=== PATIENT | female | born 1980 | race Native Hawaiian/Other Pacific Islander ===

== ENCOUNTER 2016-10-30 10:18 | Inpatient (IN) | payer OTHER ==
[2016-10-30] MEDS ORDERED: EMLA TP PRN (11:56)
[2016-10-30] MEDS ORDERED: PITOCin/NS 20 UNIT/1000ML DRIP 20 UNITS/1,000 ML BAG IV SCH ×2 (12:00→17:36)
[2016-10-30] MEDS ORDERED: LACTATED RINGERS 1,500 ML IV NR (12:00)
[2016-10-30] MEDS ORDERED: LACTATED RINGERS 1,000 ML IV SCH (12:00)
[2016-10-30] MEDS ORDERED: ANCEF/STERILE WATER 2 GM/20 ML 2 GM/20 ML SYRINGE IV NR (12:00)
[2016-10-30 12:45] LABS: Basophils % (Auto) 0.2 % (0.0-1.8); Eosinophils % (Auto) 0.2 % (0.0-4.3); Hematocrit 39.1 % (30.3-42.9); Mean Corpuscular HGB Conc 33 % (30-34); Mean Corpuscular Hemoglobin 30 pg (28-32); Mean Corpuscular Volume 91 fl (79-97); Platelet Count 244 K/mm3 (140-440); Red Cell Distribution Width 14.3 % (13.2-15.2)
[2016-10-30] MEDS ORDERED: BICITRA PO ONE (13:00)
--- NOTE | 2016-10-30 13:15 | History and Physical Report ---
History of Present Illness Date of examination: 10/30/16 Date of admission: 10/30/16 13:09 Chief complaint: patient presents with c/o of uterine contractions. Previous c/s x 4. care with [facility] Past History Past Medical History: no pertinent history Past Surgical History: section (x4) - Obstetrical History Expected Date of Delivery: 11/10/16 Actual Gestation: 38 Week(s) 3 Day(s) : 5 Number of Living Children: 4 Medications and Allergies Allergies Allergy/AdvReac Type Severity Reaction Status Date / Time No Known Allergies Allergy Unverified 10/30/16 11:06 Active Meds: Active Medications Famotidine (Pepcid) 20 mg IV ONCE ONE Stop: 10/30/16 14:01 Lactated Ringer's (Lactated Ringers) 1,500 mls @ 2,250 mls/hr IV PREOP NR Stop: 10/30/16 23:00 Cefazolin Sodium (Ancef/Sterile Water 2 Gm/20 Ml) 2 gm in 20 mls @ 80 mls/hr IV PREOP NR PRN Reason: Protocol Stop: 10/30/16 23:00 Lactated Ringer's (Lactated Ringers) 1,000 mls @ 2,250 mls/hr IV PREOP ANGELICA Stop: 10/31/16 12:27 Oxytocin/Sodium Chloride (Pitocin/Ns 20 Unit/1000ml Drip) 20 units in 1,000 mls @ 0 mls/hr IV TITR ANGELICA PRN Reason: As Directed Lidocaine/Prilocaine (Emla) 1 applic TP ONCE PRN PRN Reason: for martinez catheter insertion Metoclopramide HCl (Reglan) 10 mg IV ONCE ONE Stop: 10/30/16 14:01 Review of Systems All systems: negative Gastrointestinal: abdominal pain - Vital Signs Vital signs: Vital Signs Pulse BP Pulse Ox 83 99/68 97 10/30/16 10:39 10/30/16 10:39 10/30/16 10:39 Temp Pulse Resp BP Pulse Ox 63 99/68 97 10/30/16 12:53 10/30/16 10:39 10/30/16 12:53 - Physical Exam Breasts: Positive: deferred Cardiovascular: Regular rate, Normal S1, Normal S2 Abdomen: Positive: normal appearance, soft, normal bowel sounds. Negative: distention, tenderness Vulva: both: normal Vagina: Positive: normal moisture. Negative: discharge Cervix: Negative: lesion, discharge Uterus: Positive: normal size, normal contour Adnexa: both: normal Anus/Rectum: Positive: normal perianal skin, heme negative. Negative: rectal mass, hemorrhoids Extremities: Deep Tendon Reflex Grade: Normal +2 - Obstetrical FHR: category 2 Uterine Contraction Monitor Mode: External Cervical Dilatation: 2 Uterine Contraction Pattern: Regular Uterine Contraction Intensity: Moderate Results Result Diagrams: 10/30/16 10:50 Abnormal lab results 10/30/16 Range/Units 10:50 Seg Neutrophils % 78.4 H (40.0-70.0) % Seg Neutrophils # 7.8 H (1.8-7.7) K/mm3 All other labs normal. Assessment and Plan iup at 38 weeks, previous c/s x 4 Prepare for c/s
--- NOTE | 2016-10-30 13:52 | Anesthesia Consultation ---
Anesthesia Consult and Med Hx Date of service: 10/30/16 - Airway Anesthetic Teeth Evaluation: Good ROM Head & Neck: Adequate Mental/Hyoid Distance: Adequate Mallampati Class: Class II Intubation Access Assessment: Probably Good - Pre-Operative Health Status ASA Pre-Surgery Classification: ASA2 Proposed Anesthetic Plan: Epidural, Spinal - Pulmonary Hx Asthma: No COPD: No Hx Pneumonia: No - Cardiovascular System Hx Hypertension: No - Central Nervous System Hx Seizures: No Hx Psychiatric Problems: No - Endocrine Hx Renal Disease: No Hx End Stage Renal Disease: No Hx Hypothyroidism: No Hx Hyperthyroidism: No - Hematic Hx Anemia: No Hx Sickle Cell Disease: No - Other Systems Hx Alcohol Use: No - Additional Comments Anesthesia Medical History Comments: h/o repeat x 4
[2016-10-30] MEDS ORDERED: ZOFRAN IV PRN ×2 (13:53→17:36)
[2016-10-30] MEDS ORDERED: NARCAN 0.4 MG/1 ML IV PRN ×2 (13:53→17:36)
--- NOTE | 2016-10-30 13:53 | Anesthesia Day of Surgery ---
Anesthesia Day of Surgery - Day of Surgery Patient Examined: Yes Patient H&P Reviewed: Yes Patient is NPO: Yes
[2016-10-30] MEDS ORDERED: DILAUDID IV PRN (13:54)
[2016-10-30] MEDS ORDERED: BENADRYL IV PRN (13:54)
[2016-10-30] MEDS ORDERED: MORPHINE ONE (13:58)
[2016-10-30] MEDS ORDERED: PEPCID IV ONE (14:00)
[2016-10-30] MEDS ORDERED: REGLAN IV ONE (14:00)
[2016-10-30] MEDS ORDERED: SODIUM CHLORIDE FLUSH SYRINGE 10 ML IV SCH ×2 (14:00→17:36)
[2016-10-30] MEDS ORDERED: TORADOL IV PRN ×2 (14:10→18:53)
[2016-10-30] MEDS ORDERED: ePHEDrine SULFATE ONE (14:19)
[2016-10-30] MEDS ORDERED: WATER FOR IRRIG STERILE IR ONE (14:30)
[2016-10-30] MEDS ORDERED: NACL 0.9% IR ONE (14:30)
[2016-10-30] MEDS ORDERED: NACL 0.9% 1000 ML 1,000 ML ONE (14:33)
[2016-10-30] MEDS ORDERED: ZOFRAN ONE (14:56)
--- NOTE | 2016-10-30 15:32 | Procedure Note ---
OB Delivery Note - Delivery Date of Delivery: 10/30/16 Surgeon: SANDHYA JIMENEZ Estimated blood loss: other (600ml) - Section Preop diagnosis: repeat Postop diagnosis: same section procedure: section, repeat low transverse Disposition: PACU Complications: none - A at 1 minute: 9 at 5 minutes: 9 Gender: Male (wt 7lbs 7 oz. normal tubes and ovaries- no adhesions noted )
--- NOTE | 2016-10-30 15:36 | Operative Report ---
Operative Report Operative Report: Preoperative diagnoses- Intrauterine at 38 3/7 weeks, previous c/s x4 , active labor Postoperative diagnoses- same Procedure- Repeat low segment transverse section Surgeon- Dr. Miya Aguayo Anesthesia- Spinal/epidural Findings- live male infant wt 7-7, normal tubes and ovaries, no abdominal adhesion noted Estimated blood loss- 600ml Complications- none Instrument count- Correct Pathology specimens- Placenta- discarded Patient was taken to the OR. Spinal/epidural anesthesia was instituted. Patient was then placed in the dorsolithotomy position and Cedillo catheter was placed. Patient was then returned to the supine position and prepped and draped in usual sterile fashion. Level of anesthesia was checked and found to be adequate. A vertical skin incision was made. The incision was extended through the subcutaneous tissues to the fascia. Which was incised vertically using Mayos and pickups with teeth. The rectus muscle was then in the midline. The peritoneum was visualized, grasped with hemostats and opened using the Metzenbaum scissors. Upon entering the peritoneal cavity an fer retractor was placed appropriately. A curvilinear incision was made with Metzenbaum scissors and a smooth pickup. A bladder flap was developed, a curvilinear incision was made in the lower uterine segment using a scalpel. The uterine cavity was entered bluntly with the surgeon's finger and the incision was enlarged. The Head of the was delivered . The mouth and nose were suctioned and the remainder of the body was delivered . The cord was doubly clamped and cut . Infant was given to the waiting team. The cord blood was obtained. The placenta was then delivered manually. The uterus is cleaned with a moist wet lap tape. The first layer of the uterus is closed with 0 Vicryl running interlocking stitch. The second layer of the uterus was closed with a 0 Vicryl horizontal imbricating stitch. The pelvic gutters were cleaned . Next the adnexa were examined and found to be normal. Next the fascia was closed with 0 Vicryl running suture. Next the subcutaneous tissue was reapproximated with 3-0 Vicryl running suture. The skin was reapproximated with a 4-0 Vicryl subcuticular stitch. Mastisol and Steri-Strips were placed . A pressure dressing was applied. The patient was transferred to recovery room in stable condition.
[2016-10-30] MEDS ORDERED: MYLICON PO PRN (17:36)
[2016-10-30] MEDS ORDERED: MILK OF MAGNESIA PO PRN (17:36)
[2016-10-30] MEDS ORDERED: TUCKS PAD TP PRN (17:36)
[2016-10-30] MEDS ORDERED: LANSINOH TP PRN (17:36)
[2016-10-30] MEDS ORDERED: PERCOCET 5/325 PO PRN (17:36)
[2016-10-30] MEDS ORDERED: MORPHINE IV PRN (17:36)
[2016-10-30] MEDS ORDERED: D5LR 1,000 ML IV SCH (17:36)
[2016-10-30] MEDS ORDERED: ANCEF/NS 1 GM/50 ML 1 GM/50 ML BAG IV SCH (21:00)
[2016-10-31 01:35] LABS: Hematocrit 32.6 % (30.3-42.9); Hemoglobin 10.6 gm/dl (10.1-14.3)
[2016-10-31] MEDS ORDERED: ANCEF/NS 1 GM/50 ML 1 GM/50 ML BAG IV ONE (08:07)
[2016-10-31] MEDS: FEOSOL PO SCH (10:30)
--- NOTE | 2016-10-31 11:53 | Progress Note ---
Assessment and Plan pod 1 s/p repeat c/s, doing well, ambulate and advance diet Subjective - Subjective Date of service: 10/31/16 Principal diagnosis: pod 1 s/p repeat c/s Interval history: Routine post op care Patient reports: appetite normal, voiding normally, pain well controlled : doing well Objective - Vital Signs Latest vital signs: Vital Signs Temp Pulse Pulse Resp BP BP Pulse Ox 10/31/16 08:40 97.9 F 66 14 98/47 10/31/16 05:10 98.4 F 69 16 99/50 10/31/16 01:22 98.2 F 70 18 100/53 10/30/16 20:55 98.2 F 68 18 102/52 10/30/16 16:55 97.5 F L 69 20 114/56 10/30/16 16:31 97.7 F 70 16 107/61 99 10/30/16 16:15 97.7 F 58 L 17 117/62 99 10/30/16 16:00 63 14 118/62 99 10/30/16 15:40 60 14 115/59 99 10/30/16 15:35 78 14 116/62 99 10/30/16 15:30 97.8 F 78 18 111/53 99 10/30/16 14:49 104 H 107/69 10/30/16 13:30 98.1 F 16 10/30/16 13:18 68 112/72 10/30/16 12:53 63 97 10/30/16 12:48 69 96 10/30/16 12:42 72 95 10/30/16 12:41 79 82 L 10/30/16 12:39 71 82 L 10/30/16 12:38 27 L 82 L 10/30/16 12:34 54 L 82 L 10/30/16 12:30 30 L 82 L 10/30/16 12:29 141 H 82 L 10/30/16 12:28 26 L 82 L 10/30/16 12:27 73 82 L 10/30/16 12:26 71 0 L 10/30/16 12:25 113 H 82 L 10/30/16 12:24 138 H 82 L 10/30/16 12:22 63 82 L 10/30/16 12:21 66 82 L 10/30/16 12:20 75 82 L 10/30/16 12:19 136 H 82 L 10/30/16 12:17 75 82 L 10/30/16 12:15 61 82 L 10/30/16 12:14 27 L 82 L 10/30/16 12:13 125 H 82 L 10/30/16 12:12 27 L 82 L 10/30/16 12:10 67 93 10/30/16 12:08 65 98 10/30/16 12:03 76 96 10/30/16 12:02 70 98 10/30/16 11:57 70 97 Intake and Output 10/30/16 10/31/16 10/31/16 22:59 06:59 14:59 Intake Total 1500 980 Output Total 800 1600 800 Balance 700 -620 -800 Intake: IV 1500 740 ANCEF/NS 1 GM/50 ML 1 gm 50 In 50 ml @ 100 mls/hr IV Q8H ANGELICA Rx#:[id number] D5lr 1,000 ml @ 125 mls/ 375 690 hr IV DIRECT ANGELICA Rx#: [id number] Left Proximal Port Hand 125 Intake, Free Water 240 Output: Urine 800 1600 800 Indwelling Catheter 400 400 Uretheral (Cedillo) 500 1200 Void 400 Other: Total, Output Amount 400 400 # Voids Indwelling Catheter 1 Void 1 Estimated Blood Loss 600 - Exam Breasts: Present: deferred Cardiovascular: Present: Regular rate, Normal S1, Normal S2 Lungs: Present: Clear to auscultation Abdomen: Present: normal appearance, soft Vulva: both: normal Uterus: Present: normal, firm Extremities: Present: normal Deep Tendon Reflex Grade: Normal +2 Incision: Present: normal, dry, intact - Labs Labs: Abnormal lab results 10/30/16 Range/Units 10:50 Seg Neutrophils % 78.4 H (40.0-70.0) % Seg Neutrophils # 7.8 H (1.8-7.7) K/mm3
[2016-10-31] MEDS: MOTRIN PO PRN ×2 (12:16→23:10)
--- NOTE | 2016-11-01 06:45 | Progress Note ---
Assessment and Plan pod 2 s/p repeat c/s doing well. d/c home this pm Subjective - Subjective Date of service: 11/01/16 Principal diagnosis: pod 2 s/p repeat c/s Interval history: Routine post op care Patient reports: appetite normal, voiding normally, pain well controlled : doing well Objective - Vital Signs Latest vital signs: Vital Signs Temp Pulse Pulse Resp BP 11/01/16 00:00 98.0 F 58 L 18 96/59 10/31/16 17:05 97.9 F 68 16 81/52 10/31/16 12:22 98.1 F 74 18 84/50 10/31/16 12:16 20 10/31/16 08:40 97.9 F 66 14 98/47 Intake and Output 10/31/16 10/31/16 11/01/16 14:59 22:59 06:59 Intake Total 360 120 360 Output Total 1400 Balance -1040 120 360 Intake: Oral 360 120 360 Output: Urine 1400 Indwelling Catheter 400 Void 1000 Other: Total, Intake Amount 360 120 120 Total, Output Amount 600 # Voids Indwelling Catheter 1 Void 2 3 1 - Exam Breasts: Present: deferred Cardiovascular: Present: Regular rate, Normal S1, Normal S2 Lungs: Present: Clear to auscultation Abdomen: Present: normal appearance, soft Vulva: both: normal Uterus: Present: normal, firm Extremities: Present: normal Incision: Present: normal, dry, intact
--- NOTE | 2016-11-01 06:48 | Discharge Summary ---
Providers - Providers Date of Admission: 10/30/16 13:09 Date of discharge: 11/01/16 Attending physician: SANDHYA JIMENEZ Primary care physician: SANDHYA JIMENEZ Hospitalization Reason for admission: section Delivery: Procedure: section, repeat low transverse Procedure details: s/p repeat c/s Episiotomy: none Laceration: none Incision: normal, dry, intact Other procedures: none complications: none Discharge diagnosis: IUP at term delivered [place] baby: male Hospital course: routine post care Condition at discharge: Good Disposition: DISCHARGED TO HOME OR SELFCARE - Discharge Diagnoses (1) Status post repeat low transverse section Status: Acute Plan - Discharge Medications Prescriptions: Ferrous Sulfate [Feosol 325 MG tab] 325 mg PO BID #60 tablet Ibuprofen [Motrin 800 MG tab] 800 mg PO Q8HR PRN #30 tablet PRN Reason: Pain oxyCODONE /ACETAMINOPHEN [Percocet 5/325] 1 tab PO Q6HR PRN #30 tablet PRN Reason: Pain - Provider Discharge Summary Activity: routine, no sex for 6 weeks, no heavy lifting 4 weeks, no strenuous exercise Diet: routine Instructions: routine Additional instructions: [] Smoking cessation referral if applicable(refer to patient education folder for contact #) [] Refer to [facility] Booklet Call your doctor immediately for: * Fever > 100.5 * Heavy vaginal bleeding ( >1 pad per hour) * Severe persistent headache * Shortness of breath * Reddened, hot, painful area to leg or breast * Drainage or odor from incision. * Keep incision clean and dry at all times and follow doctor's instructions regarding bathing/showering - Follow up plan Follow up: SANDHYA JIMENEZ MD [Primary Care Provider] - 14 Days
[2016-11-01] MEDS: FEOSOL PO SCH (09:35)
[2016-11-01] MEDS: MOTRIN PO PRN (11:53)
[2016-11-01 16:31] VITALS: BP 90/46
== END 2016-11-01 19:10 | disposition home or self-care (01) | DRG 766 ==
LOC: TRG 10:18 → APU 13:09 → OB 17:28
PROVIDERS: ADMIT Specialist; ATTEND Specialist
PROC: 10D00Z1 Extraction of Products of Conception, Low, Open Approach (ICD-10-PCS; principal; 2016-10-30)
DX: O34.219 Maternal care for unspecified type scar from previous cesarean delivery (principal); O09.523 Supervision of elderly multigravida, third trimester; Z3A.38 38 weeks gestation of pregnancy; Z37.0 Single live birth
CPT/HCPCS: 36415; 85014; 85018; 85025; 86850; 86900; 86901; 99211; G0463; J0690; J1200; J1885; J2270; J2405; J2590; J2765; J7030; J7120; J7121